=== PATIENT | male | born 1985 | race Caucasian/White ===

== ENCOUNTER 2016-12-11 15:16 | Emergency (ER) | payer BC ==
[~2016-12-11] VITALS: Ht 170.2 cm; Wt 95.2 kg
[~2016-12-11 15:16] MED LIST: NOHOMEMEDS
[2016-12-11 15:51] LABS: HEMATOCRIT 50.7 % (38.0-50.0); MCH 29.3 PG (29.0-34.0); MCHC 32.5 G/DL (30.0-36.0); MCV 89.9 FL (86-99); MEAN PLAT.VOLUME 10.3 uM^3 (9.0-12.4); PLATELET COUNT 273 K/uL (156-360); RBC DIS.WIDTH-CV 14.3 % (11.8-14.6); RBC DIS.WIDTH-SD 47.4 % (39-53); RED BLOOD COUNT 5.64 M/uL (4.00-5.50); WHITE BLOOD COUNT 9.6 K/uL (4.1-10.2)
[2016-12-11 15:56] LABS: ADD MIUA? YES; BILIRUBIN NEGATIVE; BLOOD NEGATIVE; COLOR YELLOW ((YELLOW)); GLUCOSE (STRIP) NEGATIVE; KETONES 80; LEUKOCYTES NEGATIVE; NITRITE NEGATIVE; PROTEIN (STRIP) 30; SPECIFIC GRAVITY 1.017 (1.000-1.030); UROBILINOGEN 0.2 MG/DL (0.2-1.0)
[2016-12-11 16:03] LABS: BACTERIA RARE /HPF; CALCIUM OXALATE CRYSTALS 2+ /HPF; EPITHELIAL CELLS NONE SEEN /HPF; MUCUS TRACE /LPF; RED BLOOD CELLS 0-5 /HPF (0-5); UCUL ADDED? NO; WHITE BLOOD CELLS 0-5 /HPF (0-5)
[2016-12-11 16:06] LABS: CHLORIDE 102 mEq/L (99-109); POTASSIUM 4.5 mEq/L (3.7-5.4); SODIUM 136 mEq/L (136-147)
[2016-12-11 16:08] LABS: GLUCOSE 81 mg/dL (70-99)
[2016-12-11 16:10] LABS: ANION GAP 11 MEQ/L (2-14); TOTAL BILIRUBIN 0.7 mg/dL (0.0-1.0)
[2016-12-11 16:12] LABS: ALKALINE PHOSPHATASE 52 IU/L (3-129); GFR ESTIMATE (CALCULATED) > 59 mL/min/
[2016-12-11 16:13] LABS: UREA NITROGEN (BUN) 8 mg/dL (9-23)
[2016-12-11 16:15] LABS: LIPASE 11 U/L (1.0-51.0)
[2016-12-11] MEDS ORDERED: NAPROSYN500 MG PO (17:39)
[2016-12-11 17:54] VITALS: BP 132/66
== END 2016-12-11 17:56 | disposition home or self-care (01) ==
LOC: EME 15:16
PROVIDERS: Physician Assistant
DX: R10.11 Right upper quadrant pain (principal); F17.200 Nicotine dependence, unspecified, uncomplicated
CPT/HCPCS: 76705; 80053; 81003; 83690; 85027; 99281; 99284; J1885; J2405; J7030

== ENCOUNTER 2017-10-23 19:48 | Emergency (ER) | payer OTHER ==
[~2017-10-23] VITALS: Ht 170.2 cm; Wt 87.1 kg
[~2017-10-23 19:48] MED LIST changes: +NAPROSYN500 MG PO
[2017-10-23 19:52] VITALS: BP 128/91
[2017-10-23] MEDS ORDERED: MOTRIN800 MG PO (21:12)
== END 2017-10-23 22:08 | disposition home or self-care (01) ==
LOC: EME 19:48
PROC: 2W3CX1Z Immobilization of Right Lower Arm using Splint (ICD-10-PCS; principal; 2017-10-23)
DX: S62.334A Displaced fracture of neck of fourth metacarpal bone, right hand, initial encounter for closed fracture (principal); S62.336A Displaced fracture of neck of fifth metacarpal bone, right hand, initial encounter for closed fracture; S60.122A Contusion of left index finger with damage to nail, initial encounter; S67.21XA Crushing injury of right hand, initial encounter; S67.22XA Crushing injury of left hand, initial encounter; Y04.0XXA Assault by unarmed brawl or fight, initial encounter; Y99.0 Civilian activity done for income or pay; Z88.5 Allergy status to narcotic agent
CPT/HCPCS: 73130; 73140; 99281; 99284